=== PATIENT | female | born 1945 | race Caucasian/White ===

== ENCOUNTER 2016-09-15 20:29 | Emergency (ER) | payer OTHER ==
[~2016-09-15] VITALS: Ht 157.5 cm; Wt 117.9 kg
--- NOTE | ~2016-09-15 | CT71 ---
[facility] A Service of [facility] RADIOLOGY TEXT RESULTS PATIENT: ZULMA HUMPHREY LOCATION: SED : 45 UNIT #: [id number] AGE: [address]: Eris Ware MD SEX: F ORDER DR: [id number] [place] [id number] E MR#: [id number] Acc #: [id number] NAME: ZULMA HUMPHREY. : 1945 SEX: F STUDY DATE/TIME: 09/15/2016 21:58 UNIT: SED ROOM: STUDY DESCRIPTION: CT Head Wo Contrast Attending Physician: Eris Ware M.D. Ordering Physician: Eris Ware M.D. Primary Care Physician: Richard Britt M.D. MEDICAL IMAGING REPORT This report is preliminary unless electronic signature is present. EXAM CT head without contrast, 09/15/2016 HISTORY Headache with dizziness and abdominal pain today. Syncopal episode today. Hit head today. Hit right side forehead and right eye area with bruising. COMPARISON Noncontrast CT head, 04/17/2015. TECHNIQUE This CT exam was performed with one or more of the following radiation dose reduction techniques: automatic exposure control, adjustment of mA and/or kV according to patient size, and iterative reconstruction. FINDINGS No acute intracranial hemorrhage, mass lesion, mass effect or midline shift is seen. Hypodensities in the deep white matter of the brain are thought to represent changes of chronic microvascular disease. [place] matter-white matter junction distinction appears preserved, without CT evidence of acute or evolving infarct. Ventricular configuration is within normal limits. Mild generalized atrophy is noted. No displaced calvarial fracture is identified. Paranasal sinuses and mastoid air cells are clear. IMPRESSION Mild atrophy and mild chronic microvascular disease changes. No acute intracranial findings. Dictated by... Jennifer Hawk M.D. [facility] A Service of [facility] RADIOLOGY TEXT RESULTS PATIENT: ZULMA HUMPHREY LOCATION: SED : 45 UNIT #: [id number] AGE: [address]: Eris Ware MD SEX: F ORDER DR: THIS IS AN ELECTRONICALLY VERIFIED REPORT Jennifer Hawk M.D. at 09/16/2016 9:59 PM PHILLIP/amilcar TD: 09/16/2016 08:48 JOB #: [id number] MEDICAL IMAGING REPORT Page 1 of 1
[~2016-09-15 20:29] MED LIST: ALBUTEROL17 GM; ALBUTEROL17 GM INH; ALLERGY RELIEF10 M6 PO; ANTIVERT PO; ATIVAN PO; BROMFED DM COU118 ML PO; FLONASE16 GM; GLUCOTROL PO; IMIPRAMINE HCL50 MG PO; K-DUR10 MEQ PO; KLOR-CON PO; LASIX; LASIX PO; LASIX20 MG PO; LISINOPRIL20 MG PO; LOPRESSOR; LOPRESSOR PO; MACROBID100 MG PO; MICRO-K; MORGIDOX100 MG PO; NAPROXEN; NAPROXEN PO; NORVASC10 MG PO; PAXIL PO; PREDNISONE PO; PROAIR HFA8.5 GM INH; QVAR7.3 GM; QVAR7.3 GM INH; TOFRANIL; TOFRANIL-PM75 MG PO; ZANTAC; ZANTAC PO; ZOCOR20 MG PO; ZOFRAN PO
[2016-09-15 21:49] LABS: URINE APPEARANCE CLEAR; URINE BLOOD NEG (NEG); URINE COLOR YELLOW; URINE GLUCOSE NEG (NORM); URINE KETONE TRACE (NEG); URINE LEUKOCYTE ESTERASE NEG (NEG); URINE NITRATE NEG (NEG); URINE PROTEIN TRACE (NEG)
[2016-09-15 21:57] LABS: MICRO INDICATED? YES; URINE BILIRUBIN NEG (NEG)
[2016-09-15 21:59] LABS: CULTURE INDICATED? NO; URINE BACTERIA NEG (NEG); URINE HYALINE CAST 0-2 /[HPF]; URINE MUCUS PRESENT; URINE RBC 0-2 /[HPF] (0-2); URINE SQUAMOUS EPITHELIAL CELL OCCAS /[HPF]; URINE TRANSITIONAL EPI CELLS FEW /[HPF]; URINE WBC 0-2 /[HPF] (0-5)
[2016-09-15 22:18] LABS: BASOPHIL# 0.1 X10e3 (0-0.3); BASOPHIL% 0.6 % (0-2.5); EOSINOPHIL# 0.2 X10e3 (0-0.7); EOSINOPHIL% 1.9 % (0.0-7.0); HEMATOCRIT 40.5 % (35.0-45.0); HEMOGLOBIN 13.5 gm/dL (12.0-16.0); LYMPHOCYTE# 1.5 X10e3 (1.0-3.5); LYMPHOCYTE% 17.8 % (17.0-45.0); MEAN CORPUSCULAR HEMOGLOBIN 30.1 PG (28-34); MEAN CORPUSCULAR HGB CONC 33.4 g/dL (30-36); MEAN PLATELET VOLUME 8.1 FL (6.5-11.5); MONOCYTE# 0.6 X10e3 (0-1.0); MONOCYTE% 7.4 % (3.0-12.0); NEUTROPHIL# 6.3 X10e3 (1.5-7.1); NEUTROPHIL% 72.3 % (40-75); PLATELET COUNT 250 X10e3 (140-420); RED CELL DISTRIBUTION WIDTH 15.1 % (11.0-15.5); WHITE BLOOD COUNT 8.6 X10e3 (4.0-10.5)
[2016-09-15 22:20] LABS: DIFF IND NO
[2016-09-15 22:37] LABS: ALBUMIN SERUM 4.3 g/dL (3.5-5.0); ALKALINE PHOSPHATASE 63 U/L (32-92); ALT (SGPT) 12 U/L (10-40); AMYLASE 16 U/L (0-46); AST (SGOT) 23 U/L (10-42); BILIRUBIN, DIRECT <0.1 mg/dL (0.0-0.2); BILIRUBIN,INDIRECT 0.3 mg/dL (0.0-0.9); BILIRUBIN,TOTAL 0.4 mg/dL (0.2-2.0); BLOOD UREA NITROGEN 21 mg/dL (9-23); BUN/CREATININE RATIO 16.15; CALCIUM SERUM 9.2 mg/dL (8.4-10.2); CARBON DIOXIDE 23 mmol/L (22-31); CHLORIDE 105 mmol/L (100-111); CREATININE SERUM 1.3 mg/dL (0.6-1.4); GLOM FILT RATE Estimated 41.2 mL/min (>60); GLUCOSE FASTING 97 mg/dL (70-110); LIPASE 26 U/L (22-51); PROTEIN TOTAL SERUM 7.3 g/dL (6.0-8.3); SODIUM 137 mmol/L (135-145)
== END 2016-09-15 23:12 | disposition home or self-care (01) ==
LOC: SED 20:29
PROVIDERS: Emergency Medicine
DX: R42 Dizziness and giddiness (principal); R11.0 Nausea; R10.9 Unspecified abdominal pain; E11.9 Type 2 diabetes mellitus without complications; I10 Essential (primary) hypertension; R50.9 Fever, unspecified; J45.909 Unspecified asthma, uncomplicated; Z90.49 Acquired absence of other specified parts of digestive tract; Z96.652 Presence of left artificial knee joint; Z79.899 Other long term (current) drug therapy
CPT/HCPCS: 36415; 51701; 70450; 80048; 80076; 81003; 82150; 83690; 85025; 99284